=== PATIENT | male | born 1990 ===

== ENCOUNTER 2017-02-01 12:22 | Emergency (ER) | payer OTHER ==
[2017-02-01 12:32] VITALS: RESP 16; TEMP 98.4
--- NOTE | 2017-02-01 15:14 | C.PDOC ---
History Of Present Illness 27 year old male presents to the ED with complaints of generalized body rash and itchiness for the throat for two days. Patient denies eating any new products, using new medications, or skin products. Time Seen by Provider: 02/01/17 12:33 Chief Complaint (Nursing): Allergic Reaction History Per: Patient History/Exam Limitations: no limitations Onset/Duration Of Symptoms: Days (2 days) Current Symptoms Are (Timing): Still Present Possible Cause: Unknown Associated Symptoms: Itching (of the throat ) Home/EMS Treatment: None Recent travel outside of the [place]: No Past Medical History Reviewed: Historical Data, Nursing Documentation, Vital Signs Vital Signs: Last Vital Signs Temp 98.4 F 02/01/17 12:28 Pulse 68 02/01/17 15:17 Resp 16 02/01/17 15:17 BP 122/75 02/01/17 15:17 Pulse Ox 99 02/01/17 15:17 - Medical History PMH: Rheumatoid Arthritis Family History: States: Unknown Family Hx - Social History Hx Alcohol Use: No Hx Substance Use: No Review Of Systems Constitutional: Negative for: Fever, Chills ENT: Positive for: Other (throat itchiness ) Cardiovascular: Negative for: Chest Pain Respiratory: Negative for: Cough, Shortness of Breath Gastrointestinal: Negative for: Vomiting Skin: Positive for: Rash Physical Exam - Physical Exam Appears: Non-toxic, No Acute Distress Skin: Warm, Dry, Rash (generalized fine rash ) Head: Atraumatic, Other (no facial swelling ) Eye(s): bilateral: Normal Inspection, PERRL, EOMI Oral Mucosa: Moist Tongue: Normal Appearing, No Swelling Lips: Normal Appearing, No Swelling Throat: Normal, No Erythema, No Exudate, Other (normal voice, good airway, able to swallow, no swelling, and uvula at midline. ) Neck: Supple Chest: Symmetrical, No Deformity Cardiovascular: Rhythm Regular Respiratory: Normal Breath Sounds, No Rhonchi, No Wheezing Extremity: Normal ROM, No Tenderness Neurological/Psych: Oriented x3 ED Course And Treatment O2 Sat by Pulse Oximetry: 98 (room air ) Progress Note: Patient was given pepcid, prednisone, and benadryl. Patient states he is feeling better and is resting comfortably upon re-evaluation. Disposition - Disposition Referrals: [facility] [Outside] Disposition: HOME/ ROUTINE Disposition Time: 15:12 Condition: STABLE Additional Instructions: Follow up with PMD/clinic within 2-3 days. Return to Ed if feel worse. Prescriptions: DiphenhydrAMINE [Benadryl] 25 mg PO .Q4-6 H #30 cap Famotidine [Pepcid] 20 mg PO BID #20 tab predniSONE [predniSONE Tab] 2 tab PO DAILY #8 tab Instructions: Allergies (ED) - Clinical Impression Clinical Impression: Allergic reaction - Scribe Statement The provider has reviewed the documentation as recorded by the Scribkatherine Ortiz All medical record entries made by the Mario Albertoibkatherine were at my direction and personally dictated by me. I have reviewed the chart and agree that the record accurately reflects my personal performance of the history, physical exam, medical decision making, and the department course for this patient. I have also personally directed, reviewed, and agree with the discharge instructions and disposition.
[2017-02-01 15:17] VITALS: BP 122/75; PULSE 68
[2017-02-01 16:27] VITALS: O2SAT 98
== END 2017-02-01 15:17 | disposition home or self-care (01) ==
LOC: C.ER 12:22
DX: T78.49XA Other allergy, initial encounter (principal)